=== PATIENT | male | born 1990 | race Hispanic/Latino ===

== ENCOUNTER → 2024-02-12 | Outpatient (CLI) | payer OTHER | LOC: M CARPUL 09:07 | PROVIDERS: ATTEND Internal Medicine Critical Care Medicine | DX: R06.02 Shortness of breath (principal) ==

== ENCOUNTER → 2024-04-29 | Outpatient (CLI) | payer OTHER ==
[~2024-04-29] MED LIST: METHACHOLINE KIT (6 VIAL.NEB PREMIX) INH ONE
== END ==
LOC: M CARPUL 02-12 08:26 → EDUNIT# 02-12 09:00 → M CARPUL 03-06 12:34
PROVIDERS: ATTEND Internal Medicine Critical Care Medicine
DX: R06.2 Wheezing (principal)
CPT/HCPCS: 94070; J7674

== ENCOUNTER → 2024-10-06 | Outpatient (CLI) | payer OTHER ==
[~2024-10-06] MED LIST changes: +ISOVUE-300 61% 100ML VIAL As Ordered ONE; +LIDOCAINE 1% MDV 20ML VIAL As Ordered ONE; -METHACHOLINE KIT (6 VIAL.NEB PREMIX) INH ONE; +TRIAMCINOLONE ACETONIDE SUSP 40MG/ML 1ML VIAL As Ordered ONE
== END ==
LOC: M RAD 12:16
PROVIDERS: ATTEND Physician Assistant Surgical
DX: S73.121A Ischiocapsular ligament sprain of right hip, initial encounter (principal); X58.XXXA Exposure to other specified factors, initial encounter; Y92.9 Unspecified place or not applicable
CPT/HCPCS: 20610; 77002; J3301; Q9967

== ENCOUNTER 2024-10-10 09:11 | Emergency (ER) | payer OTHER ==
[~2024-10-10] VITALS: Ht 167.6 cm; Wt 97.0 kg
[2024-10-10] MEDS: NAPROXEN 250 MG TAB PO ONE (11:49)
[2024-10-10] MEDS: ACETAMINOPHEN 325 MG TAB PO ONE (11:49)
[2024-10-10] MEDS ORDERED: NAPR-1405 PO (11:57)
[2024-10-10 12:09] VITALS: BP 156/92; O2SAT 99
[2024-10-10 12:11] VITALS: TEMP 96.8
== END 2024-10-10 12:11 | disposition home or self-care (01) ==
LOC: M ED 09:11
DX: G89.18 Other acute postprocedural pain (principal); M25.551 Pain in right hip; Z98.890 Other specified postprocedural states